=== PATIENT | female | born 1980 | race American Indian/Alaskan Native ===

== ENCOUNTER 2017-01-03 19:50 | Emergency (ER) | payer BC ==
[~2017-01-03] VITALS: Ht 162.6 cm; Wt 61.8 kg
[~2017-01-03 19:50] MED LIST: MIRENA52 MG IY
[2017-01-03 20:53] LABS: HEMATOCRIT 38.2 % (36.0-46.0); MCH 30.8 PG (29.0-34.0); MCHC 34.6 G/DL (30.0-36.0); MCV 89.3 FL (83-99); RBC DIS.WIDTH-CV 12.4 % (11.8-14.6); RBC DIS.WIDTH-SD 40.2 % (39-53); RED BLOOD COUNT 4.28 M/uL (3.80-5.20); WHITE BLOOD COUNT 13.8 K/uL (4.1-10.2)
[2017-01-03 21:03] LABS: CHLORIDE 109 mEq/L (99-109); POTASSIUM 3.4 mEq/L (3.7-5.4); SODIUM 140 mEq/L (136-147)
[2017-01-03 21:05] LABS: GLUCOSE 90 mg/dL (70-99)
[2017-01-03 21:06] LABS: ANION GAP 11 MEQ/L (2-14)
[2017-01-03 21:07] LABS: TOTAL BILIRUBIN 1.3 mg/dL (0.0-1.0)
[2017-01-03 21:09] LABS: ALKALINE PHOSPHATASE 68 IU/L (3-129); GFR ESTIMATE (CALCULATED) > 59 mL/min/
[2017-01-03 21:10] LABS: UREA NITROGEN (BUN) 9 mg/dL (9-23)
[2017-01-03 21:23] LABS: QUANTITATIVE HCG < 4.0 MIU/ML
[2017-01-03 21:54] LABS: ADD MIUA? YES; BILIRUBIN NEGATIVE; BLOOD LARGE; COLOR YELLOW ((YELLOW)); GLUCOSE (STRIP) NEGATIVE; KETONES 80; LEUKOCYTES LARGE; NITRITE NEGATIVE; PROTEIN (STRIP) 30; SPECIFIC GRAVITY 1.023 (1.000-1.030)
[2017-01-03 22:16] LABS: BACTERIA 2+ /HPF; CASTS NONE SEEN /LPF; EPITHELIAL CELLS 2+ /HPF; MUCUS 3+ /LPF; RED BLOOD CELLS 20-30 /HPF (0-5); UCUL ADDED? YES; WHITE BLOOD CELLS TNTC /HPF (0-5)
[2017-01-03 22:19] LABS: MEAN PLAT.VOLUME 11.3 uM^3 (9.5-12.4); PLAT.SUFFICIENCY ADEQUATE; PLATELET COUNT 162 K/uL (156-360)
[2017-01-04] MEDS ORDERED: PYRIDIUM100 MG PO (00:28)
[2017-01-04] MEDS ORDERED: OXYCODONE HCL5 MG PO (00:28)
[2017-01-04] MEDS ORDERED: CIPRO500 MG PO (00:28)
[2017-01-04 00:39] VITALS: BP 104/56
== END 2017-01-04 00:55 | disposition home or self-care (01) ==
LOC: EME 19:50
DX: N39.0 Urinary tract infection, site not specified (principal); R10.30 Lower abdominal pain, unspecified; Z87.891 Personal history of nicotine dependence
CPT/HCPCS: 76856; 80053; 81003; 84702; 85027; 87086; 99281; 99284; J0696; J2270

== ENCOUNTER 2017-01-14 08:10 | Emergency (ER) | payer BC ==
[~2017-01-14] VITALS: Ht 162.6 cm; Wt 63.5 kg
[~2017-01-14 08:10] MED LIST changes: +CIPRO500 MG PO; +OXYCODONE HCL5 MG PO; +PYRIDIUM100 MG PO
[2017-01-14 08:43] LABS: HEMATOCRIT 38.6 % (36.0-46.0); MCHC 32.9 G/DL (30.0-36.0); MEAN PLAT.VOLUME 11.2 uM^3 (9.5-12.4); PLATELET COUNT 176 K/uL (156-360); RBC DIS.WIDTH-CV 12.3 % (11.8-14.6); RBC DIS.WIDTH-SD 41.2 % (39-53); RED BLOOD COUNT 4.24 M/uL (3.80-5.20)
[2017-01-14 09:06] LABS: ADD MIUA? YES; BILIRUBIN NEGATIVE; BLOOD NEGATIVE; COLOR YELLOW ((YELLOW)); GLUCOSE (STRIP) NEGATIVE; KETONES NEGATIVE; LEUKOCYTES SMALL; NITRITE NEGATIVE; PROTEIN (STRIP) 100; SPECIFIC GRAVITY 1.019 (1.000-1.030); UROBILINOGEN 0.2 MG/DL (0.2-1.0)
[2017-01-14 09:15] LABS: CHLORIDE 107 mEq/L (99-109); POTASSIUM 3.5 mEq/L (3.7-5.4); SODIUM 140 mEq/L (136-147)
[2017-01-14 09:17] LABS: GLUCOSE 87 mg/dL (70-99)
[2017-01-14 09:18] LABS: ANION GAP 6 MEQ/L (2-14)
[2017-01-14 09:19] LABS: TOTAL BILIRUBIN 0.3 mg/dL (0.0-1.0)
[2017-01-14 09:20] LABS: ALKALINE PHOSPHATASE 61 IU/L (3-129)
[2017-01-14 09:21] LABS: BACTERIA RARE /HPF; EPITHELIAL CELLS 3+ /HPF; HYALINE CASTS 0-5 /LPF; MUCUS TRACE /LPF; UCUL ADDED? NO
[2017-01-14 09:21] LABS: GFR ESTIMATE (CALCULATED) > 59 mL/min/
[2017-01-14 09:22] LABS: UREA NITROGEN (BUN) 9 mg/dL (9-23)
[2017-01-14 09:33] LABS: QUANTITATIVE HCG < 4.0 MIU/ML
[2017-01-14] MEDS ORDERED: COLACE100 MG PO (12:00)
[2017-01-14] MEDS ORDERED: NAPROSYN500 MG PO (12:00)
[2017-01-14 12:31] VITALS: BP 120/74
== END 2017-01-14 12:39 | disposition home or self-care (01) ==
LOC: EME 08:10
DX: R10.30 Lower abdominal pain, unspecified (principal); K59.00 Constipation, unspecified; N39.0 Urinary tract infection, site not specified; M54.5 Low back pain; R19.7 Diarrhea, unspecified; Z87.891 Personal history of nicotine dependence
CPT/HCPCS: 74020; 76770; 80053; 81003; 84702; 85027; 99281; 99284; J1885

== ENCOUNTER 2017-06-29 13:03 | Emergency (ER) | payer BC ==
[~2017-06-29] VITALS: Ht 162.6 cm; Wt 59.4 kg
[~2017-06-29 13:03] MED LIST changes: +COLACE100 MG PO; +NAPROSYN500 MG PO
[2017-06-29] MEDS ORDERED: ROXICODONE5 MG PO (14:54)
[2017-06-29] MEDS ORDERED: KEFLEX500 MG PO (14:55)
[2017-06-29 15:20] VITALS: BP 124/83
== END 2017-06-29 15:21 | disposition home or self-care (01) ==
LOC: EME 13:03
PROC: 2W3QX1Z Immobilization of Right Lower Leg using Splint (ICD-10-PCS; principal; 2017-06-29)
DX: S92.324A Nondisplaced fracture of second metatarsal bone, right foot, initial encounter for closed fracture (principal); W20.8XXA Other cause of strike by thrown, projected or falling object, initial encounter; M79.661 Pain in right lower leg; M25.561 Pain in right knee; R20.0 Anesthesia of skin; M79.5 Residual foreign body in soft tissue
CPT/HCPCS: 73630; 99281; 99284